=== PATIENT | female | born 1990 | race Caucasian/White ===

== ENCOUNTER 2017-05-27 15:37 | Emergency (ER) | payer OTHER ==
[~2017-05-27] VITALS: Wt 65.8 kg
[~2017-05-27 15:37] MED LIST: CIPRO250 MG PO; MOTRIN800 MG PO; Motrin,Rufen800 MG PO; NORCO 5-325 TA1 EACH PO; VISTARIL25 M2 PO; XANAX0.5 MG PO; Zofran4 MG PO
[2017-05-27 16:09] LABS: BASO % 0.2 % (0.0-1.0); EOS % 0.2 % (1.0-4.0); HEMATOCRIT 38.2 % (37.0-47.0); HEMOGLOBIN 13.2 g/dl (12.0-16.0); IG # 0.1 10*3/uL (0.0-0.1); LYMPH # 1.4 10*3/uL (1.3-4.4); LYMPH % 8.3 % (27.0-41.0); MEAN CELL VOLUME 89.9 fl (81.0-99.0); MEAN CORPUSCULAR HGB 31.1 pg (27.0-31.0); MEAN CORPUSCULAR HGB CONC 34.6 g/dl (33.0-37.0); MONO # 0.4 10*3/uL (0.1-1.0); MONO % 2.3 % (3.0-9.0); NEUT # 14.7 10*3/uL (2.3-7.9); NEUT % 88.6 % (47.0-73.0); PLATELET COUNT AUTOMATED 168 10*3/uL (130-400); RED BLOOD COUNT 4.25 10*6/uL (4.10-5.10); RED CELL DISTRI WIDTH 12.1 % (0-14.5); WHITE BLOOD COUNT 16.5 10*3/uL (4.8-10.8)
[2017-05-27 16:24] LABS: ALBUMIN 4.6 gm/dl (3.1-4.5); ALKALINE PHOSPHATASE 70 U/L (45-117); BILIRUBIN, TOTAL 0.7 mg/dl (0.2-1.0); BUN 12 mg/dl (7-24); CARBON DIOXIDE 20 mmol/L (21-32); CHLORIDE 109 mmol/L (98-107); EST GLOM FILT AFRICAN AMERICAN > 60 ml/min; GLUCOSE 141 mg/dL (65-99); POTASSIUM 4.2 mmol/L (3.5-5.1); SGOT/AST 20 IU/L (3-35); SGPT/ALT 19 U/L (12-78); SODIUM 139 mmol/L (136-145); TOTAL PROTEIN 7.3 gm/dL (6.4-8.2)
[2017-05-27 16:28] LABS: C-REACTIVE PROTEIN < 0.29 MG/DL (0-0.3)
[2017-05-27 18:49] LABS: BILIRUBIN NEGATIVE (NEGATIVE); BLOOD 3+ (NEGATIVE); CLARITY CLEAR (CLEAR); COLOR YELLOW (YELLOW); GLUCOSE NEGATIVE (NEGATIVE); KETONE 3+ (NEGATIVE); LEUKO ESTERASE NEGATIVE (NEGATIVE); NITRITE NEGATIVE (NEGATIVE); PROTEIN NEGATIVE (NEGATIVE); SPECIFIC GRAVITY <= 1.005 (1.005-1.030); UROBILINOGEN 0.2 E.U./dl (0.2-1.0)
[2017-05-27] MEDS ORDERED: ZOFRAN ODT4 MG SL (18:52)
[2017-05-27 19:24] LABS: URINE REFLEX COMMENT YES (NO)
== END 2017-05-27 18:49 | disposition home or self-care (01) ==
LOC: ED 15:37
PROVIDERS: Nurse Practitioner Family
DX: N83.201 Unspecified ovarian cyst, right side (principal); K52.9 Noninfective gastroenteritis and colitis, unspecified; F17.200 Nicotine dependence, unspecified, uncomplicated; Z98.51 Tubal ligation status

== ENCOUNTER 2017-05-29 17:00 | Emergency (ER) | payer OTHER ==
[~2017-05-29] VITALS: Ht 170.1 cm; Wt 65.8 kg
[~2017-05-29 17:00] MED LIST changes: +ZOFRAN ODT4 MG SL
[2017-05-29 17:20] LABS: BASO % 0.2 % (0.0-1.0); EOS % 0.2 % (1.0-4.0); HEMATOCRIT 36.5 % (37.0-47.0); HEMOGLOBIN 13.2 g/dl (12.0-16.0); LYMPH # 1.9 10*3/uL (1.3-4.4); LYMPH % 22.4 % (27.0-41.0); MEAN CELL VOLUME 86.3 fl (81.0-99.0); MEAN CORPUSCULAR HGB 31.2 pg (27.0-31.0); MEAN CORPUSCULAR HGB CONC 36.2 g/dl (33.0-37.0); MONO # 0.5 10*3/uL (0.1-1.0); MONO % 6.2 % (3.0-9.0); NEUT % 70.8 % (47.0-73.0); PLATELET COUNT AUTOMATED 187 10*3/uL (130-400); RED BLOOD COUNT 4.23 10*6/uL (4.10-5.10); RED CELL DISTRI WIDTH 11.8 % (0-14.5); WHITE BLOOD COUNT 8.4 10*3/uL (4.8-10.8)
[2017-05-29 17:34] LABS: ALBUMIN 4.1 gm/dl (3.1-4.5); ALKALINE PHOSPHATASE 62 U/L (45-117); BILIRUBIN, TOTAL 0.9 mg/dl (0.2-1.0); BUN 16 mg/dl (7-24); CARBON DIOXIDE 25 mmol/L (21-32); CHLORIDE 101 mmol/L (98-107); EST GLOM FILT AFRICAN AMERICAN > 60 ml/min; GLUCOSE 99 mg/dL (65-99); POTASSIUM 3.2 mmol/L (3.5-5.1); SGOT/AST 24 IU/L (3-35); SGPT/ALT 34 U/L (12-78); SODIUM 136 mmol/L (136-145); TOTAL PROTEIN 7.2 gm/dL (6.4-8.2)
[2017-05-29 17:38] LABS: BILIRUBIN NEGATIVE (NEGATIVE); BLOOD 1+ (NEGATIVE); CLARITY CLOUDY (CLEAR); COLOR YELLOW (YELLOW); GLUCOSE NEGATIVE (NEGATIVE); KETONE 1+ (NEGATIVE); LEUKO ESTERASE NEGATIVE (NEGATIVE); NITRITE NEGATIVE (NEGATIVE); PH 8.5 (5.0-9.0); PROTEIN TRACE (NEGATIVE)
[2017-05-29 17:46] LABS: BACTERIA 4+; URINE REFLEX COMMENT YES (NO)
[2017-05-29] MEDS ORDERED: PHENERGAN25 MG R (19:41)
== END 2017-05-29 20:14 | disposition home or self-care (01) ==
LOC: ED 17:00
PROVIDERS: Nurse Practitioner Family
DX: K29.00 Acute gastritis without bleeding (principal); F17.200 Nicotine dependence, unspecified, uncomplicated; Z79.899 Other long term (current) drug therapy

== ENCOUNTER 2017-07-31 09:07 | Emergency (ER) | payer OTHER ==
[~2017-07-31] VITALS: Ht 170.1 cm; Wt 68.0 kg
[~2017-07-31 09:07] MED LIST changes: +PHENERGAN25 MG R
[2017-07-31] MEDS ORDERED: NAPROSYN500 MG PO (09:32)
[2017-07-31] MEDS ORDERED: CYCLOBENZAPRINE10 MG PO (09:32)
== END 2017-07-31 09:48 | disposition home or self-care (01) ==
LOC: ED 09:07
DX: M43.6 Torticollis (principal); F17.200 Nicotine dependence, unspecified, uncomplicated; Z98.51 Tubal ligation status

== ENCOUNTER 2017-10-03 14:34 | Emergency (ER) | payer OTHER ==
[~2017-10-03] VITALS: Ht 170.1 cm; Wt 68.0 kg
[~2017-10-03 14:34] MED LIST changes: +CYCLOBENZAPRINE10 MG PO; +NAPROSYN500 MG PO
[2017-10-03 14:59] LABS: BASO % 0.1 % (0.0-1.0); HEMATOCRIT 37.3 % (37.0-47.0); LYMPH # 1.8 10*3/uL (1.3-4.4); LYMPH % 13.1 % (27.0-41.0); MEAN CELL VOLUME 88.4 fl (81.0-99.0); MEAN CORPUSCULAR HGB 30.8 pg (27.0-31.0); MEAN CORPUSCULAR HGB CONC 34.9 g/dl (33.0-37.0); MONO # 0.6 10*3/uL (0.1-1.0); MONO % 4.4 % (3.0-9.0); NEUT # 11.2 10*3/uL (2.3-7.9); PLATELET COUNT AUTOMATED 185 10*3/uL (130-400); RED BLOOD COUNT 4.22 10*6/uL (4.10-5.10); RED CELL DISTRI WIDTH 11.8 % (0-14.5); WHITE BLOOD COUNT 13.7 10*3/uL (4.8-10.8)
[2017-10-03 15:14] LABS: ALBUMIN 4.4 gm/dl (3.1-4.5); ALKALINE PHOSPHATASE 58 U/L (45-117); BUN 12 mg/dl (7-24); CHLORIDE 104 mmol/L (98-107); CREATININE 0.74 mg/dL (0.55-1.02); LIPASE 95 U/L (73-393); POTASSIUM 3.8 mmol/L (3.5-5.1); SGOT/AST 19 IU/L (3-35); SGPT/ALT 30 U/L (12-78); SODIUM 138 mmol/L (136-145); TOTAL PROTEIN 7.4 gm/dL (6.4-8.2)
[2017-10-03 15:17] LABS: B-hCG (QUALITATIVE) NEGATIVE (NEGATIVE)
[2017-10-03 16:36] LABS: BILIRUBIN NEGATIVE (NEGATIVE); BLOOD 2+ (NEGATIVE); CLARITY CLEAR (CLEAR); COLOR YELLOW (YELLOW); GLUCOSE NEGATIVE (NEGATIVE); KETONE 1+ (NEGATIVE); LEUKO ESTERASE NEGATIVE (NEGATIVE); NITRITE NEGATIVE (NEGATIVE); SPECIFIC GRAVITY >= 1.030 (1.005-1.030); UROBILINOGEN 0.2 E.U./dl (0.2-1.0)
[2017-10-03 16:54] LABS: BACTERIA TRACE; EPITHELIAL CELLS 15-20; MUCOUS 1+; WBC 0-2 wbc/hpf (0-5)
[2017-10-03] MEDS ORDERED: ZOFRAN ODT4 MG SL (17:30)
== END 2017-10-03 17:45 | disposition home or self-care (01) ==
LOC: ED 14:34
PROVIDERS: Physician Assistant
DX: R11.2 Nausea with vomiting, unspecified (principal); F17.200 Nicotine dependence, unspecified, uncomplicated; F10.10 Alcohol abuse, uncomplicated

== ENCOUNTER 2017-10-13 22:10 | Emergency (ER) | payer OTHER ==
[~2017-10-13] VITALS: Ht 170.1 cm; Wt 68.0 kg
[2017-10-13 23:28] LABS: BILIRUBIN NEGATIVE (NEGATIVE); BLOOD TRACE-INTACT (NEGATIVE); CLARITY CLOUDY (CLEAR); COLOR YELLOW (YELLOW); GLUCOSE NEGATIVE (NEGATIVE); KETONE TRACE (NEGATIVE); LEUKO ESTERASE 1+ (NEGATIVE); NITRITE NEGATIVE (NEGATIVE); PH 6.5 (5.0-9.0); SPECIFIC GRAVITY 1.015 (1.005-1.030)
[2017-10-13 23:39] LABS: BACTERIA 3+; EPITHELIAL CELLS TNTC
[2017-10-13] MEDS ORDERED: SEPTDS PO (23:46)
[2017-10-13] MEDS ORDERED: PYRIDIUM200 M1 PO (23:46)
== END 2017-10-14 00:02 | disposition home or self-care (01) ==
LOC: ED 22:10
PROVIDERS: Emergency Medicine Emergency Medical Services
DX: R30.0 Dysuria (principal); R11.2 Nausea with vomiting, unspecified; F17.200 Nicotine dependence, unspecified, uncomplicated

== ENCOUNTER → 2017-10-29 | Outpatient (CLI) | payer OTHER ==
[~2017-10-29] MED LIST changes: +PYRIDIUM200 M1 PO; +SEPTDS PO
== END | disposition home or self-care (01) ==
LOC: US 14:52
DX: N83.209 Unspecified ovarian cyst, unspecified side (principal); N85.8 Other specified noninflammatory disorders of uterus

== ENCOUNTER → 2017-11-02 | Outpatient (CLI) | payer OTHER ==
[2017-11-02 09:03] LABS: HEMOGLOBIN 13.7 g/dl (12.0-16.0); MEAN CELL VOLUME 90.9 fl (81.0-99.0); MEAN CORPUSCULAR HGB 30.4 pg (27.0-31.0); MEAN CORPUSCULAR HGB CONC 33.4 g/dl (33.0-37.0); MEAN PLATELET VOLUME 9.5 fl (9.6-12.3); RED BLOOD COUNT 4.51 10*6/uL (4.10-5.10); RED CELL DISTRI WIDTH 11.9 % (0-14.5); WHITE BLOOD COUNT 6.2 10*3/uL (4.8-10.8)
[2017-11-02 09:40] LABS: ALBUMIN 4.2 gm/dl (3.1-4.5); BUN 11 mg/dl (7-24); CHLORIDE 107 mmol/L (98-107); CHOLESTEROL 135 mg/dL (<200); CREATININE 0.84 mg/dL (0.55-1.02); POTASSIUM 4.2 mmol/L (3.5-5.1); SGOT/AST 12 IU/L (3-35); SGPT/ALT 22 U/L (12-78); SODIUM 141 mmol/L (136-145); TRIGLYCERIDES 66 mg/dl (<150); VLDL CHOLESTEROL 13 mg/dL (6-40)
[2017-11-02 09:42] LABS: ALKALINE PHOSPHATASE 58 U/L (45-117); HDL CHOLESTEROL 59 mg/dl (40-60); LDL CHOLESTEROL 63 mg/dL (9-159)
== END | disposition home or self-care (01) ==
LOC: LAB 08:44
PROVIDERS: Family Medicine
DX: K29.70 Gastritis, unspecified, without bleeding (principal); R10.9 Unspecified abdominal pain; R53.83 Other fatigue; F32.9 Major depressive disorder, single episode, unspecified; F41.1 Generalized anxiety disorder; R79.89 Other specified abnormal findings of blood chemistry

== ENCOUNTER 2018-01-10 13:25 | Emergency (ER) | payer OTHER ==
[~2018-01-10] VITALS: Ht 170.1 cm; Wt 68.0 kg
[2018-01-10 13:47] LABS: BILIRUBIN NEGATIVE (NEGATIVE); BLOOD NEGATIVE (NEGATIVE); CLARITY CLEAR (CLEAR); COLOR YELLOW (YELLOW); GLUCOSE NEGATIVE (NEGATIVE); KETONE NEGATIVE (NEGATIVE); LEUKO ESTERASE TRACE (NEGATIVE); NITRITE NEGATIVE (NEGATIVE); PH 6.5 (5.0-9.0); UROBILINOGEN 0.2 E.U./dl (0.2-1.0)
[2018-01-10 13:55] LABS: BACTERIA 2+; RBC 0-2 rbc/hpf (0-2)
[2018-01-10 14:03] LABS: BASO % 0.6 % (0.0-1.0); EOS # 0.2 10*3/uL (0.0-0.4); EOS % 3.3 % (1.0-4.0); HEMATOCRIT 37.7 % (37.0-47.0); HEMOGLOBIN 12.7 g/dl (12.0-16.0); LYMPH # 1.8 10*3/uL (1.3-4.4); LYMPH % 36.2 % (27.0-41.0); MEAN CELL VOLUME 92.4 fl (81.0-99.0); MEAN CORPUSCULAR HGB 31.1 pg (27.0-31.0); MEAN CORPUSCULAR HGB CONC 33.7 g/dl (33.0-37.0); MEAN PLATELET VOLUME 9.5 fl (9.6-12.3); MONO # 0.3 10*3/uL (0.1-1.0); NEUT # 2.6 10*3/uL (2.3-7.9); NEUT % 53.7 % (47.0-73.0); PLATELET COUNT AUTOMATED 159 10*3/uL (130-400); RED BLOOD COUNT 4.08 10*6/uL (4.10-5.10); RED CELL DISTRI WIDTH 12.4 % (0-14.5); WHITE BLOOD COUNT 4.8 10*3/uL (4.8-10.8)
[2018-01-10 14:23] LABS: ALBUMIN 4.2 gm/dl (3.1-4.5); ALKALINE PHOSPHATASE 59 U/L (45-117); BUN 13 mg/dl (7-24); CHLORIDE 108 mmol/L (98-107); CREATININE 0.76 mg/dL (0.55-1.02); SGOT/AST 12 IU/L (3-35); SGPT/ALT 16 U/L (12-78); SODIUM 141 mmol/L (136-145); TOTAL PROTEIN 6.9 gm/dL (6.4-8.2)
[2018-01-10] MEDS ORDERED: SEPTDS PO (14:35)
== END 2018-01-10 14:44 | disposition home or self-care (01) ==
LOC: ED 13:25
PROVIDERS: Nurse Practitioner Family
DX: N39.0 Urinary tract infection, site not specified (principal); Z98.51 Tubal ligation status; Z79.899 Other long term (current) drug therapy; Z87.442 Personal history of urinary calculi

== ENCOUNTER → 2018-02-07 | Outpatient (CLI) | payer OTHER | END | disposition home or self-care (01) | LOC: RAD 09:54 | DX: M25.552 Pain in left hip (principal) ==

== ENCOUNTER 2018-02-23 15:34 | Emergency (ER) | payer OTHER ==
[~2018-02-23] VITALS: Ht 170.1 cm; Wt 68.0 kg
[2018-02-23] MEDS ORDERED: PRILOSEC20 M1 PO (15:37)
== END 2018-02-23 17:09 | disposition home or self-care (01) ==
LOC: ED 15:34
DX: S60.221A Contusion of right hand, initial encounter (principal); Z79.899 Other long term (current) drug therapy; Z88.8 Allergy status to other drugs, medicaments and biological substances; Z98.51 Tubal ligation status; W22.01XA Walked into wall, initial encounter; Y93.89 Activity, other specified; Y92.89 Other specified places as the place of occurrence of the external cause; Y99.9 Unspecified external cause status

== ENCOUNTER 2018-05-24 11:59 | Emergency (ER) | payer OTHER ==
[~2018-05-24] VITALS: Ht 170.1 cm; Wt 68.0 kg
[~2018-05-24 11:59] MED LIST changes: +MEDROL DOSEPAK4 MG PO; +PRILOSEC20 M1 PO
== END 2018-05-24 13:15 | disposition home or self-care (01) ==
LOC: ED 11:59
DX: T63.481A Toxic effect of venom of other arthropod, accidental (unintentional), initial encounter (principal); L08.9 Local infection of the skin and subcutaneous tissue, unspecified; Z98.51 Tubal ligation status; Z79.899 Other long term (current) drug therapy; Z88.4 Allergy status to anesthetic agent; Y92.9 Unspecified place or not applicable

== ENCOUNTER 2018-06-25 16:32 | Emergency (ER) | payer OTHER ==
[~2018-06-25] VITALS: Ht 170.1 cm; Wt 70.3 kg
[2018-06-25 17:05] LABS: BASO % 0.5 % (0.0-1.0); EOS # 0.1 10*3/uL (0.0-0.4); HEMATOCRIT 40.1 % (37.0-47.0); HEMOGLOBIN 13.6 g/dl (12.0-16.0); LYMPH # 2.3 10*3/uL (1.3-4.4); LYMPH % 37.9 % (27.0-41.0); MEAN CELL VOLUME 90.7 fl (81.0-99.0); MEAN CORPUSCULAR HGB 30.8 pg (27.0-31.0); MEAN CORPUSCULAR HGB CONC 33.9 g/dl (33.0-37.0); MEAN PLATELET VOLUME 9.7 fl (9.6-12.3); MONO # 0.3 10*3/uL (0.1-1.0); MONO % 5.4 % (3.0-9.0); NEUT # 3.3 10*3/uL (2.3-7.9); PLATELET COUNT AUTOMATED 186 10*3/uL (130-400); RED BLOOD COUNT 4.42 10*6/uL (4.10-5.10); RED CELL DISTRI WIDTH 11.8 % (0-14.5); WHITE BLOOD COUNT 6.1 10*3/uL (4.8-10.8)
[2018-06-25 17:06] LABS: BILIRUBIN NEGATIVE (NEGATIVE); BLOOD 2+ (NEGATIVE); CLARITY CLEAR (CLEAR); COLOR YELLOW (YELLOW); GLUCOSE NEGATIVE (NEGATIVE); KETONE NEGATIVE (NEGATIVE); LEUKO ESTERASE NEGATIVE (NEGATIVE); NITRITE NEGATIVE (NEGATIVE); PH 6.5 (5.0-9.0); SPECIFIC GRAVITY <= 1.005 (1.005-1.030); UROBILINOGEN 0.2 E.U./dl (0.2-1.0)
[2018-06-25 17:16] LABS: URINE AMPHETAMINES < 1000 (1000ng/ml); URINE BARBITURATES < 200 (200ng/ml); URINE BENZODIAZEPINES < 200 (200ng/ml); URINE CANNABINOIDS (THC) > 50 (50ng/ml); URINE COCAINE < 300 (300ng/ml); URINE METHADONE < 300 (300ng/ml); URINE OPIATES < 300 (300ng/ml)
[2018-06-25 17:18] LABS: URINE PHENCYCLIDINE < 25 (25ng/ml)
[2018-06-25 17:19] LABS: ALBUMIN 4.6 gm/dl (3.1-4.5); ALKALINE PHOSPHATASE 68 U/L (45-117); BUN 11 mg/dl (7-24); CHLORIDE 105 mmol/L (98-107); CREATININE 0.88 mg/dL (0.55-1.02); LIPASE 85 U/L (73-393); POTASSIUM 3.8 mmol/L (3.5-5.1); SGOT/AST 11 IU/L (3-35); SGPT/ALT 18 U/L (12-78); SODIUM 140 mmol/L (136-145); TOTAL PROTEIN 7.7 gm/dL (6.4-8.2)
[2018-06-25 17:22] LABS: BACTERIA TRACE; EPITHELIAL CELLS 0-2; WBC 0-2 wbc/hpf (0-5)
[2018-06-25 17:28] LABS: ACETAMINOPHEN (TYLENOL) < 2.0 ug/ml (10-30); B-hCG (QUALITATIVE) NEGATIVE (NEGATIVE); ETHYL ALCOHOL < 3.0 mg/dl (<3)
== END 2018-06-25 18:43 | disposition home or self-care (01) ==
LOC: ED 16:32
PROVIDERS: Emergency Medicine
DX: F43.23 Adjustment disorder with mixed anxiety and depressed mood (principal); F17.210 Nicotine dependence, cigarettes, uncomplicated; F12.90 Cannabis use, unspecified, uncomplicated; Z98.51 Tubal ligation status; Z79.899 Other long term (current) drug therapy; Z88.8 Allergy status to other drugs, medicaments and biological substances

== ENCOUNTER 2019-08-28 09:42 | Inpatient (IN) | payer OTHER ==
[~2019-08-28] VITALS: Ht 152.4 cm; Wt 73.0 kg
[2019-08-28 09:45] VITALS: BP 131/80
--- NOTE | 2019-08-28 09:56 | NUR ---
PT UNABLE TO PROVIDE URINE SPECIMEN AT THIS TIME AND UNWILLING TO DISROBER HER PANTS DUE TO NOT HAVING UNDERGARMENTS ON TODAY. IV INSERTED, AWAITING MEDICATION ORDERS.
[2019-08-28 10:12] LABS: BASO % 0.2 % (0.0-1.0); EOS % 0.2 % (1.0-4.0); HEMATOCRIT 39.2 % (37.0-47.0); HEMOGLOBIN 13.4 g/dl (12.0-16.0); LYMPH # 1.2 10*3/uL (1.3-4.4); LYMPH % 11.4 % (27.0-41.0); MEAN CELL VOLUME 91.6 fl (81.0-99.0); MEAN CORPUSCULAR HGB 31.3 pg (27.0-31.0); MEAN CORPUSCULAR HGB CONC 34.2 g/dl (33.0-37.0); MONO # 0.3 10*3/uL (0.1-1.0); MONO % 2.6 % (3.0-9.0); NEUT # 8.9 10*3/uL (2.3-7.9); NEUT % 85.2 % (47.0-73.0); PLATELET COUNT AUTOMATED 190 10*3/uL (130-400); RED BLOOD COUNT 4.28 10*6/uL (4.10-5.10); RED CELL DISTRI WIDTH 11.9 % (0-14.5); WHITE BLOOD COUNT 10.5 10*3/uL (4.8-10.8)
[2019-08-28 10:30] LABS: ALBUMIN 4.2 gm/dl (3.1-4.5); ALKALINE PHOSPHATASE 55 U/L (45-117); BUN 13 mg/dl (7-24); CHLORIDE 110 mmol/L (98-107); LIPASE 58 U/L (73-393); POTASSIUM 3.8 mmol/L (3.5-5.1); SGOT/AST 13 IU/L (3-35); SGPT/ALT 28 U/L (12-78); SODIUM 140 mmol/L (136-145); TOTAL PROTEIN 7.3 gm/dL (6.4-8.2)
[2019-08-28 10:34] LABS: BETA-HCG, QUANT < 1.0 mIU/mL (1-3)
--- NOTE | 2019-08-28 10:47 | NUR ---
WRECTHING CONTINUES. BILE. ZOFRAN DOSE NOW GIVEN. SALINE INFUSING. VITALS STABLE. SOME TESTS NOT YET RETURNED.
[2019-08-28 10:48] VITALS: BP 126/71
--- NOTE | 2019-08-28 11:14 | NUR ---
INTRACTABLE WRETCHING CONTINUES. PHENERGAN AND ZOFRAN HAVE BEEN INEFFECTIVE. VITALS STABLE. PROVIDER MADE AWARE.
[2019-08-28 11:15] VITALS: BP 128/70
--- NOTE | 2019-08-28 11:39 | NUR ---
PT NOW USES THE RESTROOM AND CHOOSES NOT TO PROVIDE A SPECIMEN DESPUTE REPEATED URGING. PROVIDER AWARE.
--- NOTE | 2019-08-28 12:00 | NUR ---
Time: 1200 A 28 year old female admitted to 5E under services of JULIANE HOOPER DO. Pt. arrived via stretcher from ER. Chief complaint: vomiting. MARIAA BACON
--- NOTE | 2019-08-28 15:40 | NUR ---
PATIENT TAKEN TO CT FOR SCAN NO PREP TAKEN---EMESIS, DR. STEVEN AWARE.
[2019-08-28 16:00] VITALS: BP 127/78
[2019-08-28 16:15] LABS: BILIRUBIN NEGATIVE (NEGATIVE); BLOOD NEGATIVE (NEGATIVE); CLARITY CLEAR (CLEAR); COLOR YELLOW (YELLOW); GLUCOSE NEGATIVE (NEGATIVE); KETONE 2+ (NEGATIVE); LEUKO ESTERASE NEGATIVE (NEGATIVE); NITRITE NEGATIVE (NEGATIVE); PH 7.5 (5.0-9.0); SPECIFIC GRAVITY 1.015 (1.005-1.030); UROBILINOGEN 0.2 E.U./dl (0.2-1.0)
--- NOTE | 2019-08-28 17:20 | NUR ---
MEDICATED WITH PRN ZOFRAN.
[2019-08-28 20:00] VITALS: BP 128/79
--- NOTE | 2019-08-28 22:22 | NUR ---
IN TO ASSESS PT. C/O NAUSEA. STATES THAT HER LAST EMESIS WAS AN HOUR AGO, GREEN/YELLOW IN COLOR. GAVE THE PT SOME GINGERALE OVER ICE, ENCOURAGED FLUIDS, TO PREVENT DEHYDRATION. PT DROWSY, STATES THAT SHE WANTS SOMETHING FOR NAUSEA. ZOFRAN CAN BE ADMINISTERED AGAIN AFTER 10. WILL CONTINUE TO MONITOR AT THIS TIME.
--- NOTE | 2019-08-28 23:46 | NUR ---
TYLENOL ADMINISTERED FOR PT C/O HEADACHE RATED A 6/10 ON THE PAIN SCALE. WILL CONTINUE TO MONITOR AND REASSESS.
[2019-08-29] VITALS: BP 140/80; BP 147/91
--- NOTE | 2019-08-29 01:00 | NUR ---
PT ASLEEP AT THIS TIME. NO SIGNS OF DISCOMFORT OR DISTRESS NOTED. WILL CONTINUE TO MONITOR.
--- NOTE | 2019-08-29 01:49 | NUR ---
24 HOUR CHART CHECK COMPLETE.
--- NOTE | 2019-08-29 02:22 | NUR ---
DR ELLIOTT NOTIFIED OF PT REQUEST FOR TUMS. C/O ACID REFLUX.
--- NOTE | 2019-08-29 02:34 | NUR ---
ONE TIME DOSE OF PEPCID ADMINISTERED ALONG WITH A BETTY FOR PT C/O ACID REFLUX.
[2019-08-29 06:26] LABS: BASO % 0.3 % (0.0-1.0); EOS % 0.3 % (1.0-4.0); LYMPH % 17.5 % (27.0-41.0); MEAN CELL VOLUME 90.5 fl (81.0-99.0); MEAN CORPUSCULAR HGB CONC 34.2 g/dl (33.0-37.0); MEAN PLATELET VOLUME 10.4 fl (9.6-12.3); MONO # 0.6 10*3/uL (0.1-1.0); MONO % 5.3 % (3.0-9.0); NEUT # 8.5 10*3/uL (2.3-7.9); NEUT % 76.2 % (47.0-73.0); PLATELET COUNT AUTOMATED 189 10*3/uL (130-400); RED CELL DISTRI WIDTH 11.9 % (0-14.5); WHITE BLOOD COUNT 11.1 10*3/uL (4.8-10.8)
[2019-08-29 06:42] LABS: ACT PARTIAL THROMBO TIME 26.5 SECONDS (20.0-32.1)
[2019-08-29 07:01] LABS: ALBUMIN 3.9 gm/dl (3.1-4.5); BUN 11 mg/dl (7-24); CHLORIDE 107 mmol/L (98-107); POTASSIUM 3.6 mmol/L (3.5-5.1); SODIUM 138 mmol/L (136-145)
[2019-08-29 07:12] LABS: ALKALINE PHOSPHATASE 46 U/L (45-117); CREATININE 0.64 mg/dL (0.55-1.02); FREE T4 0.88 ng/dl (0.76-1.46); PHOSPHOROUS 2.7 mg/dL (2.5-4.9); SGOT/AST 12 IU/L (3-35); SGPT/ALT 27 U/L (12-78); THYROID STIM HORMONE (HS) 0.333 uIU/ml (0.358-4.75); TOTAL PROTEIN 6.5 gm/dL (6.4-8.2)
[2019-08-29 07:25] LABS: VITAMIN D, 25-HYDROXY 37.2 ng/mL (30-100)
[2019-08-29 08:00] VITALS: BP 128/82
--- NOTE | 2019-08-29 09:11 | NUR ---
DR. STARK NOTIFIED OF PT'S COMPLAINTS OF "HEART SKIPPING A BEAT". PT STATES IT FEELS LIKE SHE HAS A WEAK HEART BEAT AND THEN IT BEATS HARDER A COUPLE OF TIMES. PT DENIES CHEST PAIN.
--- NOTE | 2019-08-29 09:12 | NUR ---
PT COMPLAINS OF NAUSEA. PRN ZOFRAN ADMINISTERED AT THIS TIME. WILL MONITOR FOR EFFECTIVENESS.
--- NOTE | 2019-08-29 09:44 | NUR ---
[employer] BUSINESS ANALYST spoke with the patient. Patient stated she has no needs at this time. Patient stated that she resides with her boyfriend and children. Patient stated her boyfriend will provide transportation at discharge. -SAVANNA Gorman
--- NOTE | 2019-08-29 10:30 | NUR ---
PATIENT ASLEEP. PRN ZOFRAN CONSIDERED EFFECTIVE.
[2019-08-29 12:00] VITALS: BP 125/78
--- NOTE | 2019-08-29 15:57 | NUR ---
PATIENT IS VOMITING. PRN ZOFRAN AADMINISTERED AT THIS TIME. WILL MONITOR FOR EFFECTIVENESS.
[2019-08-29 16:00] VITALS: BP 137/97
--- NOTE | 2019-08-29 18:18 | NUR ---
PT VOMITING. PRN PHENERGAN ADMINISTERED. PT ALSO COMPLAINING OF HEADACHE. PRN TYLENOL GIVEN. WILL MONITOR FOR EFFECTIVENESS
[2019-08-29 20:00] VITALS: BP 129/77
[2019-08-30] VITALS: BP 142/75
--- NOTE | 2019-08-30 01:18 | NUR ---
PHENERGAN ADMINISTERED FOR PT C/O NAUSEA AND VOMITING. SMALL EMESIS OF BILE COLORED FLUID. PT DRY HEAVING. COMPLAINING OF MUSCLE PAIN FROM THROWING UP. WILL MONITOR.
--- NOTE | 2019-08-30 01:22 | NUR ---
SPOKE WITH DR ELLIOTT REGARDING PT REQUEST FOR PEPCID. AWAITING NEW ORDERS.
--- NOTE | 2019-08-30 01:30 | NUR ---
PT MOANING AND COMPLAINING OF CRAMPS IN HER ABDOMEN AND GASTRIC REFLUX. PEPCID AND TYLENOL ADMINISTERED. PT HAD ANOTHER SMALL BILE COLORED EMESIS. STATES SHE "SHOULD BE STARTING HER PERIOD SOON, WHICH COULD BE THE CAUSE OF HER CRAMPS". WILL CONTINUE TO MONITOR AND TREAT SYMPTOMATICALLY.
--- NOTE | 2019-08-30 01:45 | NUR ---
24 HOUR CHART CHECK COMPLETE.
--- NOTE | 2019-08-30 03:28 | NUR ---
PT ASLEEP AT THIS TIME. WILL CONTINUE TO MONITOR.
[2019-08-30 06:33] LABS: BASO % 0.4 % (0.0-1.0); EOS % 0.3 % (1.0-4.0); HEMATOCRIT 40.4 % (37.0-47.0); LYMPH # 1.7 10*3/uL (1.3-4.4); LYMPH % 23.5 % (27.0-41.0); MEAN CELL VOLUME 89.4 fl (81.0-99.0); MEAN CORPUSCULAR HGB CONC 34.7 g/dl (33.0-37.0); MEAN PLATELET VOLUME 9.8 fl (9.6-12.3); MONO # 0.5 10*3/uL (0.1-1.0); MONO % 6.4 % (3.0-9.0); NEUT # 5.1 10*3/uL (2.3-7.9); NEUT % 69.1 % (47.0-73.0); PLATELET COUNT AUTOMATED 188 10*3/uL (130-400); RED BLOOD COUNT 4.52 10*6/uL (4.10-5.10); RED CELL DISTRI WIDTH 11.8 % (0-14.5); WHITE BLOOD COUNT 7.3 10*3/uL (4.8-10.8)
[2019-08-30 06:50] LABS: BUN 14 mg/dl (7-24); CHLORIDE 105 mmol/L (98-107); CREATININE 0.78 mg/dL (0.55-1.02); POTASSIUM 3.4 mmol/L (3.5-5.1); SODIUM 137 mmol/L (136-145)
[2019-08-30 08:00] VITALS: BP 141/84
--- NOTE | 2019-08-30 08:31 | NUR ---
PT C/O NAUSEA AT THIS TIME AND MEDICATED WITH PHENERGAN PER ORDER PRN. WILL MONITOR FOR EFFECTIVENESS.
[2019-08-30 12:00] VITALS: BP 141/88
--- NOTE | 2019-08-30 15:55 | NUR ---
PT MEDICATED WITH PHENERGAN FOR C/O NAUSEA/ VOM WILL MONITOR
--- NOTE | 2019-08-30 15:59 | NUR ---
IV started left forearm with #24 angiocath after 1 attempts. The IV site was prepped with Chloraprep. Heparin lock attached. Sterile dressing applied. Patient tolerated precedure well. Procedure performed according to [facility] policy & procedure. GENOVEVA CHERRY
[2019-08-30 16:00] VITALS: BP 128/77
--- NOTE | 2019-08-30 18:38 | NUR ---
PT SLEEPING IN BED, ZOFRAN AND PHEN APPEAR EFFECTIVE. WILL MONITOR
[2019-08-30 20:00] VITALS: BP 128/82
--- NOTE | 2019-08-30 20:37 | NUR ---
PATIENT COMPLAINS OF 8/10 ABDOMINAL PAIN. MEDICATED PER ORDER. WILL CONTINUE TO MONITOR FOR RELIEF. VOICES NO OTHER CONCERNS AT THIS TIME. RESTING IN BED. CALL LIGHT WITHIN REACH.
--- NOTE | 2019-08-30 21:30 | NUR ---
NORCO SEEMS EFFECTIVE. PT LAYING IN BED SLEEPING.
--- NOTE | 2019-08-30 23:58 | NUR ---
24 HR chart check completed.
[2019-08-31] VITALS: BP 117/78
--- NOTE | 2019-08-31 05:35 | NUR ---
PATIENT COMPLAINS OF 7/10 ABD PAIN. MEDICATED PER ORDER. WILL MONITOR FOR RELIEF. VOICES NO OTHER CONCERNS AT THIS TIME. RESTING IN BED. CALL LIGHT WITHIN REACH
--- NOTE | 2019-08-31 06:35 | NUR ---
NORCO EFFECTIVE PER PT
[2019-08-31 06:53] LABS: BUN 16 mg/dl (7-24); CHLORIDE 103 mmol/L (98-107); POTASSIUM 3.6 mmol/L (3.5-5.1); SODIUM 135 mmol/L (136-145)
[2019-08-31 06:54] LABS: CREATININE 0.82 mg/dL (0.55-1.02)
[2019-08-31 08:00] VITALS: BP 131/81
--- NOTE | 2019-08-31 08:01 | NUR ---
PT RESTING IN BED. NO DISTRESS NOTED. WILL MONITOR
--- NOTE | 2019-08-31 09:55 | NUR ---
PT MEDICATED WITH NORCO FOR C/O ABD PAIN. PT RATES PAIN 10/10 AD WITH PHEN FOR N/V WILL MONITOR
--- NOTE | 2019-08-31 11:00 | NUR ---
PT RESTING IN BED/. PHENERGEN AND NORCO APPEAR EFFECTIVE. WILL MONITOR
[2019-08-31 12:00] VITALS: BP 134/90
--- NOTE | 2019-08-31 13:57 | NUR ---
PT STATES PAIN 7/10, RIGHT LOWER QUADRANT AND LOWER BACK. NORCO GIVEN
[2019-08-31 16:00] VITALS: BP 116/67
--- NOTE | 2019-08-31 18:47 | NUR ---
PT MEDICATED WITH PHEN FOR N/V AND NORCO FOR C.I ABD PAIN / PT RATES PAIN 07/24 WILL MONITOR
[2019-08-31 20:00] VITALS: BP 121/74
--- NOTE | 2019-08-31 22:53 | NUR ---
24 HR chart check completed.
--- NOTE | 2019-08-31 23:36 | NUR ---
PT FOUND IN ROOM VOMITING. MEDICATED WITH IV ZOFRAN. REQUESTING TUMS AND PAIN MEDICINE AT THIS TIME ALSO. WILL MONITIOR FOR RELIEF.
[2019-09-01] VITALS: BP 127/82
--- NOTE | 2019-09-01 00:44 | NUR ---
Medications effective.Patient resting quietly. Respirations easy and regular. Vital signs stable. No overt distress. Call light within reach. HISSOM,ROXIE
--- NOTE | 2019-09-01 04:07 | NUR ---
Patient sleeping. Respirations relaxed and easy. [place]ails up . [place] on. CALL LIGHT WITHIN REACH HISSOM,ROXIE
--- NOTE | 2019-09-01 07:15 | NUR ---
PATIENT TAKEN OFF FLOOR FOR SCHEDULED U/S.
[2019-09-01 07:28] LABS: BUN 12 mg/dl (7-24); CHLORIDE 102 mmol/L (98-107); CREATININE 0.82 mg/dL (0.55-1.02); POTASSIUM 3.4 mmol/L (3.5-5.1); SODIUM 135 mmol/L (136-145)
[2019-09-01 08:00] VITALS: BP 108/77
--- NOTE | 2019-09-01 08:44 | NUR ---
PATIENT SITTING UP IN CHAIR. BREAKFAST TRAY SETUP ON BEDSIDE TABLE. PT DENIES ANY ABD PAIN/DISCOMFORT AT THIS TIME. DENIES ANY N/V/D. PT TEARFUL DURING ASSESSMENT. PATIENT STATES SHE IS READY TO GO HOME. WILL CONTINUE TO MONITOR. NO VOICED COMPLAINTS. CALL LIGHT WITHIN REACH.
--- NOTE | 2019-09-01 09:04 | NUR ---
PT REFUSED LOVENOX INJECTION DESPITE INJECTION.
--- NOTE | 2019-09-01 09:52 | NUR ---
PT REQUESTED NORCO PO PER PRN ORDER FOR C/O ABD PAIN. RATES PAIN /10. WILL MONITOR EFFECTIVENESS.
[2019-09-01] MEDS ORDERED: ZOFRAN4 MG PO (11:28)
[2019-09-01] MEDS ORDERED: FAMOTIDINE20 M1 PO (11:28)
--- NOTE | 2019-09-01 12:26 | NUR ---
Discharge instructions reviewed with patient/family. Patient receptive and verbalizes understanding. Follow-up care arranged. Written instructions given to patient/family. SHELLI MORALES.
== END 2019-09-01 12:26 | disposition home or self-care (01) | DRG 249 ==
LOC: ED 09:42 → EDHOLD 11:50 → 5E 11:50
PROVIDERS: Emergency Medicine; Hospitalist; Internal Medicine; ADMIT Internal Medicine
DX: R11.2 Nausea with vomiting, unspecified (principal); K29.70 Gastritis, unspecified, without bleeding; E87.8 Other disorders of electrolyte and fluid balance, not elsewhere classified; E86.0 Dehydration; R73.9 Hyperglycemia, unspecified; F17.210 Nicotine dependence, cigarettes, uncomplicated; F12.90 Cannabis use, unspecified, uncomplicated; F32.9 Major depressive disorder, single episode, unspecified; F41.9 Anxiety disorder, unspecified; Z83.3 Family history of diabetes mellitus; Z71.6 Tobacco abuse counseling; Z88.6 Allergy status to analgesic agent

== ENCOUNTER 2020-03-19 16:17 | Emergency (ER) | payer OTHER ==
[~2020-03-19] VITALS: Ht 170.1 cm; Wt 68.0 kg
[~2020-03-19 16:17] MED LIST changes: +FAMOTIDINE20 M1 PO; +ZOFRAN4 MG PO
== END 2020-03-19 16:45 | disposition home or self-care (01) ==
LOC: ED 16:17
DX: T16.1XXA Foreign body in right ear, initial encounter (principal); F41.9 Anxiety disorder, unspecified; K21.9 Gastro-esophageal reflux disease without esophagitis; Z88.8 Allergy status to other drugs, medicaments and biological substances; Z79.899 Other long term (current) drug therapy; W45.8XXA Other foreign body or object entering through skin, initial encounter; Y93.89 Activity, other specified; Y92.89 Other specified places as the place of occurrence of the external cause; Y99.8 Other external cause status

== ENCOUNTER 2020-07-19 19:21 | Emergency (ER) | payer OTHER ==
[~2020-07-19] VITALS: Ht 167.6 cm; Wt 68.0 kg
[2020-07-20] MEDS ORDERED: KETOROLAC10 MG PO (01:14)
== END 2020-07-20 01:30 | disposition home or self-care (01) ==
LOC: ED 19:21
DX: S06.0X9A Concussion with loss of consciousness of unspecified duration, initial encounter (principal); Z88.8 Allergy status to other drugs, medicaments and biological substances; Z79.899 Other long term (current) drug therapy; X58.XXXA Exposure to other specified factors, initial encounter; Y93.89 Activity, other specified; Y92.89 Other specified places as the place of occurrence of the external cause; Y99.8 Other external cause status

== ENCOUNTER → 2020-12-23 | Outpatient (CLI) | payer OTHER ==
[~2020-12-23] MED LIST changes: +KETOROLAC10 MG PO
[2020-12-23 16:51] LABS: BASO % 0.6 % (0.0-1.0); EOS # 0.1 10*3/uL (0.0-0.4); EOS % 2.2 % (1.0-4.0); HEMATOCRIT 38.5 % (37.0-47.0); LYMPH # 2.4 10*3/uL (1.3-4.4); LYMPH % 38.3 % (27.0-41.0); MEAN CELL VOLUME 91.4 fl (81.0-99.0); MEAN CORPUSCULAR HGB 30.6 pg (27.0-31.0); MEAN CORPUSCULAR HGB CONC 33.5 g/dl (33.0-37.0); MEAN PLATELET VOLUME 9.6 fl (9.6-12.3); MONO # 0.4 10*3/uL (0.1-1.0); MONO % 6.1 % (3.0-9.0); NEUT # 3.4 10*3/uL (2.3-7.9); NEUT % 52.6 % (47.0-73.0); PLATELET COUNT AUTOMATED 212 10*3/uL (130-400); RED BLOOD COUNT 4.21 10*6/uL (4.10-5.10); RED CELL DISTRI WIDTH 12.6 % (0-14.5); WHITE BLOOD COUNT 6.4 10*3/uL (4.8-10.8)
[2020-12-23 17:22] LABS: BUN 13 mg/dl (7-24); CHLORIDE 108 mmol/L (98-107); CHOLESTEROL 142 mg/dL (<200); CREATININE 0.87 mg/dL (0.55-1.02); HDL CHOLESTEROL 76 mg/dl (40-60); LDL CHOLESTEROL 52 mg/dL (9-159); POTASSIUM 3.6 mmol/L (3.5-5.1); SGOT/AST 14 IU/L (3-35); SGPT/ALT 25 U/L (12-78); SODIUM 139 mmol/L (136-145); TOTAL PROTEIN 7.2 gm/dL (6.4-8.2); TRIGLYCERIDES 70 mg/dl (<150); VLDL CHOLESTEROL 14 mg/dL (6-40)
[2020-12-23 17:28] LABS: ALKALINE PHOSPHATASE 83 U/L (45-117)
[2020-12-23 17:29] LABS: VITAMIN D, 25-HYDROXY 17.2 ng/mL (30-100)
== END | disposition home or self-care (01) ==
LOC: LAB 16:10
PROVIDERS: ATTEND Physician Assistant
DX: Z51.81 Encounter for therapeutic drug level monitoring (principal); E55.9 Vitamin D deficiency, unspecified; Z79.899 Other long term (current) drug therapy

== ENCOUNTER 2020-12-27 23:31 | Emergency (ER) | payer OTHER | END 2020-12-28 00:32 | disposition home or self-care (01) | LOC: ED 23:31 | DX: S50.12XA Contusion of left forearm, initial encounter (principal); F41.9 Anxiety disorder, unspecified; K21.9 Gastro-esophageal reflux disease without esophagitis; F17.200 Nicotine dependence, unspecified, uncomplicated; Z88.8 Allergy status to other drugs, medicaments and biological substances; Z79.899 Other long term (current) drug therapy; Z98.51 Tubal ligation status; W22.8XXA Striking against or struck by other objects, initial encounter; Y93.89 Activity, other specified; Y92.89 Other specified places as the place of occurrence of the external cause; Y99.8 Other external cause status ==

== ENCOUNTER 2021-01-13 21:59 | Emergency (ER) | payer OTHER ==
[~2021-01-13] VITALS: Ht 170.1 cm; Wt 68.0 kg
[2021-01-13 22:58] LABS: BILIRUBIN Negative (Negative); BLOOD Negative (Negative); CLARITY Clear (Clear); COLOR Yellow (Yellow); GLUCOSE Negative (Negative); KETONE Negative (Negative); LEUKO ESTERASE Negative (Negative); NITRITE Negative (Negative); PH 6.5 (4.5-8.0); UROBILINOGEN 0.2 E.U./dl (0.0-1.0)
[2021-01-13 23:08] LABS: RBC 0-2 rbc/hpf (0-2)
[2021-01-13 23:09] LABS: EPITHELIAL CELLS 0-2
== END 2021-01-13 23:53 | disposition home or self-care (01) ==
LOC: ED 21:59
PROVIDERS: Emergency Medicine
DX: R50.9 Fever, unspecified (principal); R00.2 Palpitations; E86.0 Dehydration; F41.9 Anxiety disorder, unspecified; F32.9 Major depressive disorder, single episode, unspecified; F17.200 Nicotine dependence, unspecified, uncomplicated; Z20.822 Contact with and (suspected) exposure to COVID-19; Z98.51 Tubal ligation status; Z88.8 Allergy status to other drugs, medicaments and biological substances; Z79.899 Other long term (current) drug therapy

== ENCOUNTER → 2021-01-28 | Outpatient (CLI) | payer OTHER | END | disposition home or self-care (01) | LOC: COVID19 09:26 | PROVIDERS: ATTEND Nurse Practitioner Family | DX: J02.9 Acute pharyngitis, unspecified (principal); Z20.822 Contact with and (suspected) exposure to COVID-19 ==

== ENCOUNTER 2021-06-18 02:04 | Emergency (ER) | payer OTHER ==
[~2021-06-18] VITALS: Wt 72.6 kg
[2021-06-18] MEDS ORDERED: 'CLONIDINE0.1 MG PO (02:42)
[2021-06-18 03:27] LABS: BASO % 0.3 % (0.0-1.0); EOS # 0.2 10*3/uL (0.0-0.4); EOS % 1.2 % (1.0-4.0); HEMATOCRIT 37.3 % (37.0-47.0); LYMPH # 1.8 10*3/uL (1.3-4.4); LYMPH % 12.7 % (27.0-41.0); MEAN CELL VOLUME 90.3 fl (81.0-99.0); MEAN CORPUSCULAR HGB 30.3 pg (27.0-31.0); MEAN CORPUSCULAR HGB CONC 33.5 g/dl (33.0-37.0); MONO # 0.7 10*3/uL (0.1-1.0); MONO % 4.8 % (3.0-9.0); NEUT # 11.2 10*3/uL (2.3-7.9); NEUT % 80.6 % (47.0-73.0); PLATELET COUNT AUTOMATED 184 10*3/uL (130-400); RED BLOOD COUNT 4.13 10*6/uL (4.10-5.10); RED CELL DISTRI WIDTH 11.8 % (0-14.5); WHITE BLOOD COUNT 13.9 10*3/uL (4.8-10.8)
[2021-06-18 03:45] LABS: ALBUMIN 3.8 gm/dl (3.1-4.5); ALKALINE PHOSPHATASE 69 U/L (45-117); BUN 12 mg/dl (7-24); CHLORIDE 109 mmol/L (98-107); CREATININE 0.77 mg/dL (0.55-1.02); LIPASE 120 U/L (73-393); POTASSIUM 3.3 mmol/L (3.5-5.1); SGOT/AST 13 IU/L (3-35); SGPT/ALT 27 U/L (12-78); SODIUM 140 mmol/L (136-145); TOTAL PROTEIN 6.8 gm/dL (6.4-8.2)
[2021-06-18 03:47] LABS: B-hCG (QUALITATIVE) NEGATIVE (NEGATIVE)
[2021-06-18 08:01] LABS: BILIRUBIN Negative (Negative); BLOOD Negative (Negative); CLARITY Clear (Clear); COLOR Yellow (Yellow); GLUCOSE Negative (Negative); KETONE Negative (Negative); LEUKO ESTERASE Negative (Negative); NITRITE Negative (Negative); SPECIFIC GRAVITY 1.015 (1.001-1.030); UROBILINOGEN 0.2 E.U./dl (0.0-1.0)
[2021-06-18 08:17] LABS: PH >= 9.0 (4.5-8.0)
[2021-06-18 08:19] LABS: BACTERIA TRACE; RBC 0-2 rbc/hpf (0-2)
[2021-06-18] MEDS ORDERED: ZOFRAN4 MG PO (08:37)
== END 2021-06-18 09:05 | disposition home or self-care (01) ==
LOC: ED 02:04
PROVIDERS: Emergency Medicine
DX: A08.4 Viral intestinal infection, unspecified (principal); Z20.822 Contact with and (suspected) exposure to COVID-19; F17.200 Nicotine dependence, unspecified, uncomplicated; Z88.8 Allergy status to other drugs, medicaments and biological substances

== ENCOUNTER 2021-06-20 14:02 | Emergency (ER) | payer OTHER ==
[~2021-06-20] VITALS: Wt 68.0 kg
[~2021-06-20 14:02] MED LIST changes: +'CLONIDINE0.1 MG PO
== END 2021-06-20 14:45 | disposition left against medical advice (07) ==
LOC: ED 14:02
DX: M79.10 Myalgia, unspecified site (principal); R11.2 Nausea with vomiting, unspecified; R51.9 Headache, unspecified; Z53.21 Procedure and treatment not carried out due to patient leaving prior to being seen by health care provider

== ENCOUNTER 2021-06-29 12:13 | Emergency (ER) | payer OTHER ==
[2021-07-12] MEDS ORDERED: ZOFRAN4 MG PO ×2 (06:10)
== END 2021-06-29 14:00 | disposition left against medical advice (07) ==
LOC: ED 12:13
DX: R11.2 Nausea with vomiting, unspecified (principal); Z53.21 Procedure and treatment not carried out due to patient leaving prior to being seen by health care provider

== ENCOUNTER 2021-07-13 15:28 | Inpatient (IN) | payer OTHER ==
[~2021-07-13] VITALS: Ht 170.1 cm; Wt 68.0 kg
[2021-07-13 15:37] VITALS: BP 150/88
[2021-07-13 16:18] LABS: BILIRUBIN Negative (Negative); BLOOD 1+ (Negative); CLARITY Turbid (Clear); COLOR Yellow (Yellow); GLUCOSE Negative (Negative); KETONE Trace (Negative); LEUKO ESTERASE Negative (Negative); NITRITE Negative (Negative); PH 7.5 (4.5-8.0); SPECIFIC GRAVITY 1.015 (1.001-1.030)
[2021-07-13 16:26] LABS: URINE AMPHETAMINES < 1000 (1000ng/ml); URINE BARBITURATES < 200 (200ng/ml); URINE BENZODIAZEPINES < 200 (200ng/ml); URINE CANNABINOIDS (THC) > 50 (50ng/ml); URINE COCAINE < 300 (300ng/ml); URINE METHADONE < 300 (300ng/ml); URINE OPIATES < 300 (300ng/ml)
[2021-07-13 16:28] LABS: URINE PHENCYCLIDINE < 25 (25ng/ml)
[2021-07-13 16:34] LABS: BACTERIA 2+
[2021-07-13 16:39] LABS: BASO % 0.3 % (0.0-1.0); EOS # 0.1 10*3/uL (0.0-0.4); HEMATOCRIT 41.3 % (37.0-47.0); LYMPH # 1.8 10*3/uL (1.3-4.4); LYMPH % 23.8 % (27.0-41.0); MEAN CELL VOLUME 89.6 fl (81.0-99.0); MEAN CORPUSCULAR HGB 30.6 pg (27.0-31.0); MEAN CORPUSCULAR HGB CONC 34.1 g/dl (33.0-37.0); MEAN PLATELET VOLUME 9.9 fl (9.6-12.3); MONO # 0.5 10*3/uL (0.1-1.0); MONO % 6.3 % (3.0-9.0); NEUT # 5.2 10*3/uL (2.3-7.9); NEUT % 68.3 % (47.0-73.0); PLATELET COUNT AUTOMATED 230 10*3/uL (130-400); RED BLOOD COUNT 4.61 10*6/uL (4.10-5.10); RED CELL DISTRI WIDTH 11.8 % (0-14.5); WHITE BLOOD COUNT 7.7 10*3/uL (4.8-10.8)
[2021-07-13 17:06] LABS: ALBUMIN 4.1 gm/dl (3.1-4.5); BUN 9 mg/dl (7-24); CHLORIDE 102 mmol/L (98-107); CPK 68 U/L (26-192); CREATININE 0.88 mg/dL (0.55-1.02); LIPASE 1041 U/L (73-393); POTASSIUM 3.9 mmol/L (3.5-5.1); SGOT/AST 22 IU/L (3-35); SGPT/ALT 28 U/L (12-78); SODIUM 135 mmol/L (136-145); TOTAL PROTEIN 7.3 gm/dL (6.4-8.2)
[2021-07-13 17:07] LABS: ALKALINE PHOSPHATASE 58 U/L (45-117)
[2021-07-13 17:08] LABS: ACETAMINOPHEN (TYLENOL) < 5.0 ug/ml (10-30); BETA-HCG, QUANT < 1.0 mIU/mL (1-3); ETHYL ALCOHOL < 3.0 mg/dl (<3)
[2021-07-13 20:24] VITALS: BP 163/90
[2021-07-13] MEDS ORDERED: ESCITALOPRAM OX10 MG PO (21:00)
[2021-07-14 03:28] VITALS: BP 125/80
[2021-07-14 05:45] LABS: ALBUMIN 3.9 gm/dl (3.1-4.5); BUN 10 mg/dl (7-24); CHLORIDE 102 mmol/L (98-107); CHOLESTEROL 147 mg/dL (<200); CREATININE 0.86 mg/dL (0.55-1.02); SGOT/AST 7 IU/L (3-35); SGPT/ALT 27 U/L (12-78); SODIUM 135 mmol/L (136-145); TOTAL PROTEIN 7.1 gm/dL (6.4-8.2); TRIGLYCERIDES 112 mg/dl (<150)
[2021-07-14 05:47] LABS: ALKALINE PHOSPHATASE 60 U/L (45-117); LDL CHOLESTEROL 69 mg/dL (9-159)
[2021-07-14 06:18] LABS: BASO % 0.4 % (0.0-1.0); EOS # 0.1 10*3/uL (0.0-0.4); EOS % 0.7 % (1.0-4.0); HEMATOCRIT 44.2 % (37.0-47.0); LYMPH # 1.8 10*3/uL (1.3-4.4); LYMPH % 24.1 % (27.0-41.0); MEAN CELL VOLUME 90.2 fl (81.0-99.0); MEAN CORPUSCULAR HGB 30.4 pg (27.0-31.0); MEAN CORPUSCULAR HGB CONC 33.7 g/dl (33.0-37.0); MEAN PLATELET VOLUME 9.8 fl (9.6-12.3); MONO # 0.4 10*3/uL (0.1-1.0); NEUT % 68.5 % (47.0-73.0); PLATELET COUNT AUTOMATED 239 10*3/uL (130-400); RED CELL DISTRI WIDTH 11.6 % (0-14.5); WHITE BLOOD COUNT 7.3 10*3/uL (4.8-10.8)
[2021-07-14 08:49] VITALS: BP 127/80
[2021-07-14 23:19] VITALS: BP 105/64
[2021-07-15 06:01] LABS: ALKALINE PHOSPHATASE 61 U/L (45-117); BUN 8 mg/dl (7-24); CHLORIDE 101 mmol/L (98-107); CREATININE 0.81 mg/dL (0.55-1.02); LIPASE 181 U/L (73-393); SGOT/AST 9 IU/L (3-35); SGPT/ALT 23 U/L (12-78); SODIUM 136 mmol/L (136-145); TOTAL PROTEIN 7.3 gm/dL (6.4-8.2)
[2021-07-15 06:24] LABS: BASO % 0.3 % (0.0-1.0); EOS # 0.1 10*3/uL (0.0-0.4); EOS % 0.8 % (1.0-4.0); HEMATOCRIT 45.1 % (37.0-47.0); LYMPH # 1.7 10*3/uL (1.3-4.4); LYMPH % 21.9 % (27.0-41.0); MEAN CELL VOLUME 89.8 fl (81.0-99.0); MEAN CORPUSCULAR HGB 30.3 pg (27.0-31.0); MEAN CORPUSCULAR HGB CONC 33.7 g/dl (33.0-37.0); MEAN PLATELET VOLUME 9.6 fl (9.6-12.3); MONO # 0.4 10*3/uL (0.1-1.0); MONO % 5.8 % (3.0-9.0); NEUT # 5.4 10*3/uL (2.3-7.9); NEUT % 70.9 % (47.0-73.0); PLATELET COUNT AUTOMATED 216 10*3/uL (130-400); RED BLOOD COUNT 5.02 10*6/uL (4.10-5.10); RED CELL DISTRI WIDTH 11.6 % (0-14.5); WHITE BLOOD COUNT 7.6 10*3/uL (4.8-10.8)
[2021-07-15 07:45] VITALS: BP 139/67
[2021-07-15] MEDS ORDERED: HEARTBURN RELIE20 MG PO (10:58)
== END 2021-07-15 11:11 | disposition home or self-care (01) | DRG 282 ==
LOC: ED 15:28 → EDHOLD 18:27
PROVIDERS: Emergency Medicine; Internal Medicine; Physical Therapist; ADMIT Internal Medicine; ATTEND Internal Medicine
DX: K85.90 Acute pancreatitis without necrosis or infection, unspecified (principal); E87.1 Hypo-osmolality and hyponatremia; Z20.822 Contact with and (suspected) exposure to COVID-19; R73.9 Hyperglycemia, unspecified; E83.42 Hypomagnesemia; F12.10 Cannabis abuse, uncomplicated; R31.9 Hematuria, unspecified; F41.9 Anxiety disorder, unspecified; R45.851 Suicidal ideations; R00.1 Bradycardia, unspecified; K21.9 Gastro-esophageal reflux disease without esophagitis; Z88.6 Allergy status to analgesic agent; Z83.3 Family history of diabetes mellitus; Z79.899 Other long term (current) drug therapy

== ENCOUNTER 2021-07-23 14:57 | Emergency (ER) | payer OTHER ==
[~2021-07-23] VITALS: Ht 170.1 cm; Wt 72.6 kg
[~2021-07-23 14:57] MED LIST changes: +ESCITALOPRAM OX10 MG PO; +HEARTBURN RELIE20 MG PO
== END 2021-07-23 23:23 | disposition left against medical advice (07) ==
LOC: ED 14:57
DX: R35.0 Frequency of micturition (principal); R30.9 Painful micturition, unspecified; Z53.21 Procedure and treatment not carried out due to patient leaving prior to being seen by health care provider

== ENCOUNTER 2021-07-30 09:13 | Inpatient (IN) | payer OTHER ==
[~2021-07-30] VITALS: Wt 72.6 kg
[2021-07-30 09:19] VITALS: BP 124/86
[2021-07-30 09:50] LABS: BASO % 0.2 % (0.0-1.0); EOS # 0.1 10*3/uL (0.0-0.4); EOS % 0.7 % (1.0-4.0); HEMATOCRIT 46.5 % (37.0-47.0); LYMPH # 1.5 10*3/uL (1.3-4.4); LYMPH % 17.8 % (27.0-41.0); MEAN CELL VOLUME 90.5 fl (81.0-99.0); MEAN CORPUSCULAR HGB 30.2 pg (27.0-31.0); MEAN CORPUSCULAR HGB CONC 33.3 g/dl (33.0-37.0); MEAN PLATELET VOLUME 9.3 fl (9.6-12.3); MONO # 0.6 10*3/uL (0.1-1.0); MONO % 6.6 % (3.0-9.0); NEUT # 6.3 10*3/uL (2.3-7.9); NEUT % 74.5 % (47.0-73.0); PLATELET COUNT AUTOMATED 259 10*3/uL (130-400); RED BLOOD COUNT 5.14 10*6/uL (4.10-5.10); RED CELL DISTRI WIDTH 12.1 % (0-14.5); WHITE BLOOD COUNT 8.5 10*3/uL (4.8-10.8)
[2021-07-30 10:07] LABS: ALBUMIN 4.4 gm/dl (3.1-4.5); ALKALINE PHOSPHATASE 68 U/L (45-117); BUN 10 mg/dl (7-24); CHLORIDE 100 mmol/L (98-107); CREATININE 1.05 mg/dL (0.55-1.02); LIPASE 1059 U/L (73-393); POTASSIUM 4.3 mmol/L (3.5-5.1); SGOT/AST 18 IU/L (3-35); SGPT/ALT 26 U/L (12-78); SODIUM 134 mmol/L (136-145); TOTAL PROTEIN 8.2 gm/dL (6.4-8.2)
[2021-07-30 10:18] LABS: BILIRUBIN Negative (Negative); BLOOD 2+ (Negative); CLARITY Cloudy (Clear); COLOR Yellow (Yellow); GLUCOSE Negative (Negative); KETONE Trace (Negative); LEUKO ESTERASE 2+ (Negative); NITRITE Negative (Negative)
[2021-07-30 10:30] VITALS: BP 124/82
[2021-07-30 10:34] LABS: BACTERIA 2+; EPITHELIAL CELLS 21-30; MUCOUS 2+
[2021-07-30] MEDS ORDERED: PANTOPRAZOLE SO40 MG PO (11:24)
[2021-07-30 11:51] VITALS: BP 127/85
[2021-07-30 12:24] VITALS: BP 126/84
[2021-07-30 14:00] VITALS: BP 128/84
== END 2021-07-30 17:46 | disposition left against medical advice (07) | DRG 282 ==
LOC: ED 09:13 → EDHOLD 10:43
PROVIDERS: Emergency Medicine; ADMIT Internal Medicine; ATTEND Internal Medicine
DX: K85.00 Idiopathic acute pancreatitis without necrosis or infection (principal); N39.0 Urinary tract infection, site not specified; E87.1 Hypo-osmolality and hyponatremia; D72.810 Lymphocytopenia; R31.9 Hematuria, unspecified; Z53.29 Procedure and treatment not carried out because of patient's decision for other reasons; Z83.3 Family history of diabetes mellitus; Z88.6 Allergy status to analgesic agent; Z79.899 Other long term (current) drug therapy

== ENCOUNTER 2022-04-17 21:12 | Emergency (ER) | payer OTHER ==
[~2022-04-17] VITALS: Ht 170.1 cm; Wt 81.6 kg
[~2022-04-17 21:12] MED LIST changes: +PANTOPRAZOLE SO40 MG PO
== END 2022-04-18 00:24 | disposition home or self-care (01) ==
LOC: ED 21:12
DX: S00.83XA Contusion of other part of head, initial encounter (principal); Y08.89XA Assault by other specified means, initial encounter; Y93.89 Activity, other specified; Y92.89 Other specified places as the place of occurrence of the external cause; Y99.8 Other external cause status

== ENCOUNTER 2022-05-08 12:22 | Emergency (ER) | payer OTHER ==
[~2022-05-08] VITALS: Ht 170.1 cm; Wt 70.3 kg
[2022-05-08] MEDS ORDERED: SEPTDS PO (13:13)
[2022-05-08] MEDS ORDERED: CEPHALEXIN500 M1 PO (13:13)
[2022-05-10] MEDS ORDERED: CEPHALEXIN500 M1 PO (09:29)
[2022-05-10] MEDS ORDERED: SEPTDS PO (09:29)
== END 2022-05-08 13:20 | disposition home or self-care (01) ==
LOC: ED 12:22
DX: L03.211 Cellulitis of face (principal); F17.200 Nicotine dependence, unspecified, uncomplicated; Z88.8 Allergy status to other drugs, medicaments and biological substances; Z79.899 Other long term (current) drug therapy; Z98.51 Tubal ligation status

== ENCOUNTER 2022-06-25 22:56 | Emergency (ER) | payer OTHER ==
[~2022-06-25] VITALS: Ht 165.1 cm; Wt 52.2 kg
[~2022-06-25 22:56] MED LIST changes: +CEPHALEXIN500 M1 PO
[2022-06-25 23:41] LABS: BILIRUBIN Negative (Negative); BLOOD Negative (Negative); CLARITY Clear (Clear); COLOR Yellow (Yellow); GLUCOSE Negative (Negative); KETONE Negative (Negative); LEUKO ESTERASE Negative (Negative); NITRITE Negative (Negative); UROBILINOGEN 0.2 E.U./dl (0.0-1.0)
[2022-06-25 23:51] LABS: URINE AMPHETAMINES < 1000 (1000ng/ml); URINE BARBITURATES < 200 (200ng/ml); URINE BENZODIAZEPINES < 200 (200ng/ml); URINE CANNABINOIDS (THC) > 50 (50ng/ml); URINE COCAINE < 300 (300ng/ml); URINE METHADONE < 300 (300ng/ml); URINE OPIATES < 300 (300ng/ml)
[2022-06-26 00:06] LABS: URINE PHENCYCLIDINE < 25 (25ng/ml)
[2022-06-26 00:07] LABS: BASO % 0.4 % (0.0-1.0); EOS # 0.1 10*3/uL (0.0-0.4); HEMATOCRIT 36.4 % (37.0-47.0); LYMPH # 2.2 10*3/uL (1.3-4.4); LYMPH % 23.2 % (27.0-41.0); MEAN CELL VOLUME 90.5 fl (81.0-99.0); MEAN CORPUSCULAR HGB 30.8 pg (27.0-31.0); MEAN CORPUSCULAR HGB CONC 34.1 g/dl (33.0-37.0); MEAN PLATELET VOLUME 9.3 fl (9.6-12.3); MONO # 0.7 10*3/uL (0.1-1.0); MONO % 7.7 % (3.0-9.0); NEUT # 6.4 10*3/uL (2.3-7.9); NEUT % 67.5 % (47.0-73.0); PLATELET COUNT AUTOMATED 234 10*3/uL (130-400); RED BLOOD COUNT 4.02 10*6/uL (4.10-5.10); RED CELL DISTRI WIDTH 12.2 % (0-14.5); WHITE BLOOD COUNT 9.5 10*3/uL (4.8-10.8)
[2022-06-26 00:08] LABS: EPITHELIAL CELLS 0-2; RBC 0-2 rbc/hpf (0-2)
[2022-06-26 00:22] LABS: ALKALINE PHOSPHATASE 67 U/L (45-117); BUN 15 mg/dl (7-24); CHLORIDE 110 mmol/L (98-107); CREATININE 0.84 mg/dL (0.55-1.02); POTASSIUM 3.5 mmol/L (3.5-5.1); SGOT/AST 44 IU/L (3-35); SGPT/ALT 41 U/L (12-78); SODIUM 142 mmol/L (136-145); TOTAL PROTEIN 7.2 gm/dL (6.4-8.2)
[2022-06-26 00:23] LABS: ACETAMINOPHEN (TYLENOL) < 5.0 ug/ml (10-30); ETHYL ALCOHOL < 3.0 mg/dl (<3)
== END 2022-06-26 08:27 | disposition home or self-care (01) ==
LOC: ED 22:56
PROVIDERS: Family Medicine
DX: F41.9 Anxiety disorder, unspecified (principal); F12.90 Cannabis use, unspecified, uncomplicated; F17.200 Nicotine dependence, unspecified, uncomplicated; Z88.8 Allergy status to other drugs, medicaments and biological substances; Z79.2 Long term (current) use of antibiotics; Z79.899 Other long term (current) drug therapy; Z98.51 Tubal ligation status

== ENCOUNTER 2022-06-26 17:42 | Emergency (ER) | payer OTHER ==
[2022-06-26 18:24] LABS: BASO % 0.6 % (0.0-1.0); EOS % 0.8 % (1.0-4.0); HEMATOCRIT 33.8 % (37.0-47.0); LYMPH # 1.3 10*3/uL (1.3-4.4); LYMPH % 25.9 % (27.0-41.0); MEAN CELL VOLUME 90.6 fl (81.0-99.0); MEAN CORPUSCULAR HGB 31.1 pg (27.0-31.0); MEAN CORPUSCULAR HGB CONC 34.3 g/dl (33.0-37.0); MEAN PLATELET VOLUME 9.2 fl (9.6-12.3); MONO # 0.4 10*3/uL (0.1-1.0); MONO % 8.1 % (3.0-9.0); NEUT # 3.1 10*3/uL (2.3-7.9); NEUT % 64.4 % (47.0-73.0); PLATELET COUNT AUTOMATED 185 10*3/uL (130-400); RED BLOOD COUNT 3.73 10*6/uL (4.10-5.10); RED CELL DISTRI WIDTH 12.3 % (0-14.5); WHITE BLOOD COUNT 4.8 10*3/uL (4.8-10.8)
[2022-06-26 18:51] LABS: ALKALINE PHOSPHATASE 50 U/L (45-117); BUN 15 mg/dl (7-24); CHLORIDE 113 mmol/L (98-107); CREATININE 1.01 mg/dL (0.55-1.02); SGOT/AST 46 IU/L (3-35); SGPT/ALT 41 U/L (12-78); SODIUM 143 mmol/L (136-145); TOTAL PROTEIN 6.6 gm/dL (6.4-8.2)
[2022-06-26 18:53] LABS: B-hCG (QUALITATIVE) NEGATIVE (NEGATIVE)
[2022-06-26 18:59] LABS: ETHYL ALCOHOL < 3.0 mg/dl (<3)
[2022-06-26 22:08] LABS: BILIRUBIN Negative (Negative); BLOOD Negative (Negative); CLARITY Cloudy (Clear); COLOR Yellow (Yellow); GLUCOSE Negative (Negative); KETONE 2+ (Negative); LEUKO ESTERASE Negative (Negative); NITRITE Negative (Negative); SPECIFIC GRAVITY >= 1.030 (1.001-1.030)
[2022-06-26 22:17] LABS: URINE AMPHETAMINES < 1000 (1000ng/ml); URINE BARBITURATES < 200 (200ng/ml); URINE BENZODIAZEPINES < 200 (200ng/ml); URINE CANNABINOIDS (THC) > 50 (50ng/ml); URINE COCAINE < 300 (300ng/ml); URINE METHADONE < 300 (300ng/ml); URINE OPIATES < 300 (300ng/ml)
[2022-06-26 22:21] LABS: BACTERIA 1+; EPITHELIAL CELLS 16-20; FINE GRANULAR CAST 0-2; MUCOUS 1+
[2022-06-26 22:23] LABS: URINE PHENCYCLIDINE < 25 (25ng/ml)
== END 2022-06-27 10:54 ==
LOC: ED 17:42
PROVIDERS: Emergency Medicine
DX: F29 Unspecified psychosis not due to a substance or known physiological condition (principal); Z20.822 Contact with and (suspected) exposure to COVID-19; F41.9 Anxiety disorder, unspecified; F32.A Depression, unspecified; K21.9 Gastro-esophageal reflux disease without esophagitis; F17.200 Nicotine dependence, unspecified, uncomplicated; Z88.8 Allergy status to other drugs, medicaments and biological substances; Z79.2 Long term (current) use of antibiotics; Z79.899 Other long term (current) drug therapy; Z98.51 Tubal ligation status

== ENCOUNTER 2022-07-12 17:17 | Emergency (ER) | payer OTHER ==
[2022-07-12 17:48] LABS: BASO % 0.4 % (0.0-1.0); EOS # 0.1 10*3/uL (0.0-0.4); EOS % 0.9 % (1.0-4.0); LYMPH # 1.6 10*3/uL (1.3-4.4); LYMPH % 21.5 % (27.0-41.0); MEAN CELL VOLUME 90.5 fl (81.0-99.0); MEAN CORPUSCULAR HGB 30.7 pg (27.0-31.0); MEAN CORPUSCULAR HGB CONC 33.9 g/dl (33.0-37.0); MEAN PLATELET VOLUME 9.1 fl (9.6-12.3); MONO # 0.4 10*3/uL (0.1-1.0); MONO % 5.4 % (3.0-9.0); NEUT # 5.3 10*3/uL (2.3-7.9); NEUT % 71.5 % (47.0-73.0); PLATELET COUNT AUTOMATED 214 10*3/uL (130-400); RED BLOOD COUNT 3.98 10*6/uL (4.10-5.10); WHITE BLOOD COUNT 7.5 10*3/uL (4.8-10.8)
[2022-07-12 18:04] LABS: ALKALINE PHOSPHATASE 63 U/L (45-117); BUN 14 mg/dl (7-24); CHLORIDE 111 mmol/L (98-107); CPK 459 U/L (26-192); CREATININE 0.96 mg/dL (0.55-1.02); POTASSIUM 3.5 mmol/L (3.5-5.1); SGOT/AST 27 IU/L (3-35); SGPT/ALT 29 U/L (12-78); SODIUM 140 mmol/L (136-145); TOTAL PROTEIN 6.9 gm/dL (6.4-8.2)
[2022-07-12 18:07] LABS: ACETAMINOPHEN (TYLENOL) < 5.0 ug/ml (10-30); BETA-HCG, QUANT < 1.0 mIU/mL (1-3); ETHYL ALCOHOL < 3.0 mg/dl (<3)
[2022-07-12 18:13] LABS: BILIRUBIN Negative (Negative); BLOOD Negative (Negative); CLARITY Clear (Clear); COLOR Yellow (Yellow); GLUCOSE Negative (Negative); KETONE Negative (Negative); LEUKO ESTERASE Negative (Negative); NITRITE Negative (Negative); SPECIFIC GRAVITY <= 1.005 (1.001-1.030); UROBILINOGEN 0.2 E.U./dl (0.0-1.0)
[2022-07-12 18:22] LABS: BACTERIA 1+; WBC 0-2 wbc/hpf (0-5)
[2022-07-12 18:24] LABS: URINE AMPHETAMINES < 1000 (1000ng/ml); URINE BARBITURATES < 200 (200ng/ml); URINE BENZODIAZEPINES < 200 (200ng/ml); URINE CANNABINOIDS (THC) > 50 (50ng/ml); URINE COCAINE < 300 (300ng/ml); URINE METHADONE < 300 (300ng/ml); URINE OPIATES < 300 (300ng/ml)
[2022-07-12 18:26] LABS: URINE PHENCYCLIDINE < 25 (25ng/ml)
[2022-07-12 18:26] LABS: SALICYLATE (ASA) 1.8 mg/dl (2.8-20.0)
[2022-07-12 18:30] LABS: LITHIUM < 0.20 MMOL/L (0.60-1.20)
[2022-07-12] MEDS ORDERED: LITHIUM CARBON300 MG PO (23:35)
[2022-07-12] MEDS ORDERED: PALIPERIDONE ER6 MG PO (23:35)
[2022-07-12] MEDS ORDERED: FAMOTIDINE20 M1 PO (23:36)
== END 2022-07-13 05:58 ==
LOC: ED 17:17
PROVIDERS: Emergency Medicine
DX: F31.9 Bipolar disorder, unspecified (principal); Z20.822 Contact with and (suspected) exposure to COVID-19; Z88.6 Allergy status to analgesic agent; Z79.899 Other long term (current) drug therapy; Z87.891 Personal history of nicotine dependence

== ENCOUNTER 2024-04-08 10:47 | Emergency (ER) | payer OTHER ==
[~2024-04-08] VITALS: Wt 54.4 kg
[~2024-04-08 10:47] MED LIST changes: +LITHIUM CARBON300 MG PO; +PALIPERIDONE ER6 MG PO
== END 2024-04-08 10:59 | disposition left against medical advice (07) ==
LOC: ED 10:47
DX: Z04.89 Encounter for examination and observation for other specified reasons (principal); F31.9 Bipolar disorder, unspecified; F17.200 Nicotine dependence, unspecified, uncomplicated; Z91.83 Wandering in diseases classified elsewhere; Z88.8 Allergy status to other drugs, medicaments and biological substances; Z79.899 Other long term (current) drug therapy; Z98.51 Tubal ligation status; Z53.29 Procedure and treatment not carried out because of patient's decision for other reasons

== ENCOUNTER 2024-04-08 12:58 | Emergency (ER) | payer OTHER ==
[~2024-04-08] VITALS: Wt 49.9 kg
[2024-04-08] MEDS ORDERED: DIAZEPAM 10 MG/2 ML SYR IV ONE (13:35)
[2024-04-08 15:14] LABS: BILIRUBIN Negative (Negative); BLOOD 3+ (Negative); CLARITY Cloudy (Clear); COLOR Dark Yellow (Yellow); GLUCOSE Negative (Negative); KETONE 1+ (Negative); LEUKO ESTERASE Trace (Negative); NITRITE Negative (Negative); PH 5.5 (4.5-8.0); SPECIFIC GRAVITY >= 1.030 (1.001-1.030)
[2024-04-08 15:22] LABS: URINE AMPHETAMINES Positive (1000ng/ml); URINE BARBITURATES Negative (200ng/ml); URINE BENZODIAZEPINES Negative (200ng/ml); URINE CANNABINOIDS (THC) Positive (50ng/ml); URINE COCAINE Negative (300ng/ml); URINE METHADONE Negative (300ng/ml); URINE OPIATES Negative (300ng/ml); URINE PHENCYCLIDINE Negative (25ng/ml)
[2024-04-08 15:38] LABS: BASO % 0.4 % (0.0-1.0); EOS % 0.5 % (1.0-4.0); HEMATOCRIT 39.5 % (37.0-47.0); LYMPH # 1.7 10*3/uL (1.3-4.4); LYMPH % 22.8 % (27.0-41.0); MEAN CELL VOLUME 92.9 fl (81.0-99.0); MEAN CORPUSCULAR HGB 31.3 pg (27.0-31.0); MEAN CORPUSCULAR HGB CONC 33.7 g/dl (33.0-37.0); MEAN PLATELET VOLUME 9.1 fl (9.6-12.3); MONO # 0.5 10*3/uL (0.1-1.0); MONO % 6.8 % (3.0-9.0); NEUT # 5.1 10*3/uL (2.3-7.9); NEUT % 69.4 % (47.0-73.0); PLATELET COUNT AUTOMATED 216 10*3/uL (130-400); RED BLOOD COUNT 4.25 10*6/uL (4.10-5.10); RED CELL DISTRI WIDTH 12.3 % (0-14.5); WHITE BLOOD COUNT 7.4 10*3/uL (4.8-10.8)
[2024-04-08 15:48] LABS: BACTERIA 1+; EPITHELIAL CELLS 21-30; RBC 31-40 rbc/hpf (0-2)
[2024-04-08 15:49] LABS: ACT PARTIAL THROMBO TIME 27.1 SECONDS (20.0-32.1)
[2024-04-08 16:07] LABS: ALKALINE PHOSPHATASE 65 U/L (46-116); BUN 13 mg/dl (9-23); CHLORIDE 109 mmol/L (98-107); CPK 627 U/L (34-171); POTASSIUM 4.1 mmol/L (3.4-5.1); SGPT/ALT 38 U/L (5-49); TOTAL PROTEIN 6.9 gm/dL (6.0-8.0)
[2024-04-08 16:14] LABS: ETHYL ALCOHOL < 3.0 mg/dl (<3)
== END 2024-04-08 19:04 ==
LOC: ED 12:58
PROVIDERS: Internal Medicine
DX: F31.9 Bipolar disorder, unspecified (principal); F19.10 Other psychoactive substance abuse, uncomplicated; F17.200 Nicotine dependence, unspecified, uncomplicated; Z88.8 Allergy status to other drugs, medicaments and biological substances; Z79.899 Other long term (current) drug therapy

== ENCOUNTER 2024-07-12 23:43 | Emergency (ER) | payer OTHER ==
[~2024-07-12] VITALS: Wt 61.9 kg
[2024-07-13 00:16] LABS: BASO % 0.3 % (0.0-1.0); EOS # 0.1 10*3/uL (0.0-0.4); EOS % 0.7 % (1.0-4.0); HEMATOCRIT 36.5 % (37.0-47.0); LYMPH # 1.4 10*3/uL (1.3-4.4); LYMPH % 20.6 % (27.0-41.0); MEAN CELL VOLUME 93.4 fl (81.0-99.0); MEAN CORPUSCULAR HGB 30.7 pg (27.0-31.0); MEAN CORPUSCULAR HGB CONC 32.9 g/dl (33.0-37.0); MEAN PLATELET VOLUME 8.8 fl (9.6-12.3); MONO # 0.5 10*3/uL (0.1-1.0); MONO % 6.9 % (3.0-9.0); NEUT # 4.9 10*3/uL (2.3-7.9); NEUT % 71.2 % (47.0-73.0); PLATELET COUNT AUTOMATED 201 10*3/uL (130-400); RED BLOOD COUNT 3.91 10*6/uL (4.10-5.10); RED CELL DISTRI WIDTH 12.2 % (0-14.5); WHITE BLOOD COUNT 6.8 10*3/uL (4.8-10.8)
[2024-07-13 00:37] LABS: ALKALINE PHOSPHATASE 61 U/L (46-116); BUN 15 mg/dl (9-23); CHLORIDE 104 mmol/L (98-107); CPK 368 U/L (34-171); ETHYL ALCOHOL 4.8 mg/dl (<3); POTASSIUM 3.5 mmol/L (3.4-5.1); SGPT/ALT 17 U/L (5-49)
[2024-07-13 00:40] LABS: BILIRUBIN Negative (Negative); BLOOD Negative (Negative); CLARITY Clear (Clear); COLOR Yellow (Yellow); GLUCOSE Negative (Negative); KETONE Trace (Negative); LEUKO ESTERASE Negative (Negative); NITRITE Negative (Negative); PH 6.5 (4.5-8.0)
[2024-07-13 00:43] LABS: URINE AMPHETAMINES Positive (1000ng/ml); URINE BARBITURATES Negative (200ng/ml); URINE BENZODIAZEPINES Negative (200ng/ml); URINE CANNABINOIDS (THC) Positive (50ng/ml); URINE COCAINE Negative (300ng/ml); URINE METHADONE Negative (300ng/ml); URINE OPIATES Negative (300ng/ml); URINE PHENCYCLIDINE Negative (25ng/ml)
[2024-07-13 00:51] LABS: WBC 0-2 wbc/hpf (0-5)
[2024-07-13] MEDS ORDERED: LORazepam 2 MG/ML VIAL IV ONE (01:10)
== END 2024-07-13 04:16 | disposition home or self-care (01) ==
LOC: ED 23:43
PROVIDERS: Emergency Medicine
DX: R45.1 Restlessness and agitation (principal); F15.10 Other stimulant abuse, uncomplicated; F31.9 Bipolar disorder, unspecified; F41.9 Anxiety disorder, unspecified; K21.9 Gastro-esophageal reflux disease without esophagitis; E87.1 Hypo-osmolality and hyponatremia; F17.200 Nicotine dependence, unspecified, uncomplicated; F12.90 Cannabis use, unspecified, uncomplicated; Z98.890 Other specified postprocedural states; Z98.51 Tubal ligation status; Z79.899 Other long term (current) drug therapy

== ENCOUNTER 2024-08-14 11:03 | Emergency (ER) | payer OTHER ==
[~2024-08-14] VITALS: Wt 63.5 kg
[2024-08-14] MEDS ORDERED: SODIUM CHLORIDE 0.9% 1,000 ML IV ONE (11:15)
[2024-08-14] MEDS ORDERED: LORazepam 2 MG/ML VIAL IV ONE (11:15)
[2024-08-14 11:38] LABS: BASO % 0.8 % (0.0-1.0); EOS # 0.1 10*3/uL (0.0-0.4); EOS % 2.7 % (1.0-4.0); HEMATOCRIT 34.4 % (37.0-47.0); LYMPH % 27.1 % (27.0-41.0); MEAN CELL VOLUME 94.5 fl (81.0-99.0); MEAN CORPUSCULAR HGB CONC 32.8 g/dl (33.0-37.0); MEAN PLATELET VOLUME 8.7 fl (9.6-12.3); MONO # 0.2 10*3/uL (0.1-1.0); MONO % 6.4 % (3.0-9.0); NEUT # 2.4 10*3/uL (2.3-7.9); NEUT % 62.7 % (47.0-73.0); PLATELET COUNT AUTOMATED 178 10*3/uL (130-400); RED BLOOD COUNT 3.64 10*6/uL (4.10-5.10); WHITE BLOOD COUNT 3.8 10*3/uL (4.8-10.8)
[2024-08-14 11:57] LABS: BUN 12 mg/dl (9-23); CHLORIDE 111 mmol/L (98-107); POTASSIUM 3.7 mmol/L (3.4-5.1)
[2024-08-14 11:59] LABS: B-hCG (QUALITATIVE) NEGATIVE (NEGATIVE); ETHYL ALCOHOL < 3.0 mg/dl (<3)
== END 2024-08-14 15:08 | disposition home or self-care (01) ==
LOC: ED 11:03
PROVIDERS: Emergency Medicine
DX: G93.41 Metabolic encephalopathy (principal); T40.715A Adverse effect of cannabis, initial encounter; F31.9 Bipolar disorder, unspecified; F41.9 Anxiety disorder, unspecified; K21.9 Gastro-esophageal reflux disease without esophagitis; F12.90 Cannabis use, unspecified, uncomplicated; F17.200 Nicotine dependence, unspecified, uncomplicated; Z88.8 Allergy status to other drugs, medicaments and biological substances; Z98.51 Tubal ligation status; Y92.89 Other specified places as the place of occurrence of the external cause